=== PATIENT | female | born 1990 | race African-American/Black ===

== ENCOUNTER 2018-01-23 19:02 | Emergency (ER) | payer SELFPAY ==
[~2018-01-23] VITALS: Ht 167.6 cm; Wt 54.4 kg
[2018-01-23 19:25] VITALS: BP 129/69
== END 2018-01-23 22:23 | disposition home or self-care (01) ==
LOC: ER 19:02
DX: S43.402A Unspecified sprain of left shoulder joint, initial encounter (principal); V43.52XA Car driver injured in collision with other type car in traffic accident, initial encounter; Y93.89 Activity, other specified; Y99.8 Other external cause status; Y92.410 Unspecified street and highway as the place of occurrence of the external cause
CPT/HCPCS: 73030